=== PATIENT | female | born 1945 | race Caucasian/White ===

== ENCOUNTER 2017-02-04 17:08 | Emergency (ER) | payer MEDICARE ==
[2017-02-04] MEDS ORDERED: KETOROLAC TROMETHAMINE 60 MG/2 ML VIAL IM ONE ×2 (18:14→18:16)
--- OUTSIDE RECORDS SUMMARY | 2017-02-04 18:55 | XMS REPORT | Continuity of Care Document ---
:1945 Author Organization [facility] [place] [address] Care Team Providers Name Role Phone Rafi Roberson Primary Care Provider [phone] Source Comments This disclosure is being made pursuant to the [employer] program and maynot contain all information available regarding this patient.[facility] Active Allergies and Adverse Reactions Allergen Noted Date Severity Reactions Comments Morphine 07/12/2016 High Altered Mental Status Penicillins 01/31/2017 High Hives Current Medications Be aware that medications may not be up to date as of this document. Alwaysverify current medications with the patient. Prescription Sig. Disp. Refills Start Date End Date Status levothyroxine (SYNTHROID, Take by mouth. 10/21/2015 Active LEVOTHROID) 88 MCG tablet fexofenadine (CAMILLE Take by mouth. 01/19/2016 Active ALLERGY) 60 MG tablet Acetaminophen (TYLENOL) Take by mouth. Active 325 MG CAPS amoxicillin-clavulanate 01/13/2017 Active (AUGMENTIN) 500-125 MG per tablet amoxicillin-clavulanate 11/08/2016 Active (AUGMENTIN) 875-125 MG per tablet azithromycin (ZITHROMAX) 11/01/2016 Active 250 MG tablet CIPRO HC otic suspension 11/14/2016 Active predniSONE (DELTASONE) 20 11/08/2016 Active MG tablet diclofenac (VOLTAREN) 1 % Apply to right arm 1 Tube 0 01/31/2017 Active GEL twice daily as needed Active Problems No known active problems Most Recent Encounters Date Type Specialty Providers Description 01/31/2017 Clinical Support Radiology Jeremiah Jordan MD Elbow pain, right Shanti Jolley RT 01/31/2017 Office Visit Orthopedic Surgery Jeremiah Jordan MD Elbow pain, right (Primary Dx) 01/12/2017 Data Import 11/07/2016 Clinical Support Radiology Jeremiah Jordan MD Pain of right upper Azul Samantha N, extremity RT 11/07/2016 Clinical Support Radiology Jeremiah Jordan MD Elbow pain, right Rona Rosario, RTR 11/07/2016 Office Visit Orthopedic Surgery Jeremiah Jordan MD Elbow pain, right (Primary Dx); Pain of right upper extremity Immunizations Name Dates Previously Given Next Due Pneumococcal Polysaccharide-23 12/21/2010 Social History Tobacco Use Types Packs/Day Years Used Date Never Smoker Last Filed Vital Signs Vital Sign Reading Time Taken Blood Pressure 140/90 01/31/2017 10:39 AM CDT Pulse 88 06/24/2011 9:40 AM CDT Temperature 36.1 C (97 F) 11/23/2010 10:52 AM [employer]ISER Respiratory Rate - - Height 1.575 m (5' 2") 01/31/2017 10:39 AM CDT Weight 115.849 kg (255 lb 6.4 oz) 01/31/2017 10:39 AM CDT Body Mass Index 46.7 01/31/2017 10:39 AM CDT Oxygen Saturation - - Plan of Care Health Maintenance Due Date Last Done Comments Hepatitis C Screening 1963 Tetanus/Pertussis (1 - Tdap) 1964 Colonoscopy 1995 Mammogram 1995 Well Adult Visit 1995 Zoster Vaccine 60+ 2005 Bone Density 2010 Pneumococcal Low/Medium Risk 65+ (2 of 2 - PCV13) 12/22/2011 12/21/2010 Influenza Immunization (#1) 2016 Results from Last 3 Months XR HUMERUS MIN 2 VIEWS (01/31/2017 10:13 AM)Only the most recent of2 resultswithin the time period is included. Narrative XR HUMERUS MIN 2 VIEWS [id number] RT Clinical History: PT STATES THAT SHE HAD A FX AND SURGERY 20 YEARS AGO, SHE SAYS HARDWARE BROKE ABOUT 5 MONTHS AGO AND HAS BEEN HAVING PAIN SINCE Comparison: 11/07/2016. Findings: 2 radiographs of the right humerus were obtained with frontal and lateral projections.There is osteopenia.There is no definite evidence of acute fracture or dislocation. Postsurgical changes of right elbow arthroplasty are partially visualized.There is no definite evidence of a hardware abnormality or acute fracture.The previously visualized lucency noted involving the proximal aspect of the prosthesis is not definitely seen on the current study.Extensive old healed fracture deformities involving the right elbow are again noted. The visualized soft tissues are stable. Impression: 1.Stable postsurgical changes involving the right elbow with old healed fracture deformities.Definite evidence of acute osseous abnormality. THIS IS AN ELECTRONICALLY SIGNED REPORT BY READING PHYSICIAN: Venkat Joyce D.O.2017-01-31 16:36:11 Procedure Note Rl, External Ris In - Tue Jan 31, 2017 4:37 PM CDT XR HUMERUS MIN 2 VIEWS [id number] RT Clinical History: PT STATES THAT SHE HAD A FX AND SURGERY 20 YEARS AGO, SHE SAYS HARDWARE BROKE ABOUT 5 MONTHS AGO AND HAS BEEN HAVING PAIN SINCE Comparison: 11/07/2016. Findings: 2 radiographs of the right humerus were obtained with frontal and lateral projections. There is osteopenia. There is no definite evidence of acute fracture or dislocation. Postsurgical changes of right elbow arthroplasty are partially visualized. There is no definite evidence of a hardware abnormality or acute fracture. The previously visualized lucency noted involving the proximal aspect of the prosthesis is not definitely seen on the current study. Extensive old healed fracture deformities involving the right elbow are again noted. The visualized soft tissues are stable. Impression: 1. Stable postsurgical changes involving the right elbow with old healed fracture deformities. Definite evidence of acute osseous abnormality. THIS IS AN ELECTRONICALLY SIGNED REPORT BY READING PHYSICIAN: Venkat Joyce D.O. 2017-01-31 16:36:11 XR ELBOW 2 VIEWS (01/31/2017 10:08 AM)Only the most recent of2 resultswithin the time period is included. Narrative XR ELBOW 2 VIEWS [id number] RT Clinical History: PT STATES THAT SHE HAD A FX AND SURGERY 20 YEARS AGO, SHE SAYS HARDWARE BROKE ABOUT 5 MONTHS AGO AND HAS BEEN HAVING PAIN SINCE Comparison: 11/07/2016. Findings: 2 radiographs of the right elbow were obtained with frontal and lateral projections.There is redemonstration of postsurgical changes of right elbow arthroplasty with grossly stable alignment.Old healed fracture deformities involving the right elbow are again noted.The visualized soft tissues are stable. Impression: 1.Redemonstration of postsurgical changes of right elbow arthroplasty involving the previously visualized extensive fractures with grossly stable alignment.No definite evidence of acute fracture or hardware abnormality. THIS IS AN ELECTRONICALLY SIGNED REPORT BY READING PHYSICIAN: Venkat Joyce D.O.2017-01-31 16:34:37 Procedure Note Rl, External Ris In - Tue Jan 31, 2017 4:35 PM CDT XR ELBOW 2 VIEWS [id number] RT Clinical History: PT STATES THAT SHE HAD A FX AND SURGERY 20 YEARS AGO, SHE SAYS HARDWARE BROKE ABOUT 5 MONTHS AGO AND HAS BEEN HAVING PAIN SINCE Comparison: 11/07/2016. Findings: 2 radiographs of the right elbow were obtained with frontal and lateral projections. There is redemonstration of postsurgical changes of right elbow arthroplasty with grossly stable alignment. Old healed fracture deformities involving the right elbow are again noted. The visualized soft tissues are stable. Impression: 1. Redemonstration of postsurgical changes of right elbow arthroplasty involving the previously visualized extensive fractures with grossly stable alignment. No definite evidence of acute fracture or hardware abnormality. THIS IS AN ELECTRONICALLY SIGNED REPORT BY READING PHYSICIAN: Venkat Joyce D.O. 2017-01-31 16:34:37
--- OUTSIDE RECORDS SUMMARY | 2017-02-04 18:55 | XMS REPORT | Continuity of Care Document ---
:1945 Author Organization [facility] ([facility]) Address [address] [place] [address] Phone [phone] Care Team Providers Name Role Phone Artie Dominique Primary Care Provider [phone] Source Comments This disclosure is being made pursuant to the Care Everywhere program, applicable federal and state laws, and may not contain all informaitonavailable regarding this patient.[facility] ([facility]) Active Allergies and Adverse Reactions Allergen Noted Date Severity Reactions Comments Penicillins Urticaria (Hives) Current Medications Not on file Active Problems Problem Noted Date Pain in joint, upper arm 07/22/2004 Social History Tobacco Use Types Packs/Day Years Used Date Never Assessed Last Filed Vital Signs Vital Sign Reading Time Taken Blood Pressure 152/74 07/21/2004 9:40 AM CDT Pulse 62 07/21/2004 9:40 AM CDT Temperature 35.1 C (95.18 F) 07/21/2004 9:40 AM CDT Respiratory Rate - - Height 1.6 m (5' 2.99") 07/21/2004 9:40 AM CDT Weight 109.997 kg (242 lb 8 oz) 07/21/2004 9:40 AM CDT Body Mass Index 42.97 07/21/2004 9:40 AM CDT Oxygen Saturation - - Plan of Care Health Maintenance Due Date Last Done Comments HCV Screening 1945 Hepatitis B Vaccine (1 of 3 - Primary Series) 1945 Tdap Vaccine 1956 Lipid Disorder Screening 1963 Td Vaccine 1963 Mammogram 1985 Colonoscopy 1995 Zoster Vaccine 2005 Osteoporosis Screening (DXA Bone Density) 2010 Pneumococcal Vaccine (1 of 2 - PCV13) 2010 Influenza Vaccine: Seasonal (#1) 05/16/2016 Results from Last 3 Months Not on file
[2017-02-04] MEDS ORDERED: oxyCODONE HCL/ACETAMINOPHEN 1 TAB TABLET PO ONE (19:18)
[2017-02-04] MEDS ORDERED: oxyCODONE HCL/ACETAMINOPHEN 1 TAB TABLET ONE (19:19)
--- NOTE | 2017-02-04 19:51 | ERNOTE ---
Upper Extremity HPI - Narrative Date of Service: 02/04/17 - General Extremities Pain Location: arm: right - R side Time Seen by Provider: 02/04/17 18:38 Source: patient, family Exam Limitations: no limitations - Immun/Allergies/Home Medications Immunizations: IMMUNIZATION HX Immunizations Up to Date Yes History of Influenza Vaccine Yes Hx Pneumococcal Vaccination Yes Allergies/Adverse Reactions: Allergies Allergy/AdvReac Type Severity Reaction Status Date / Time morphine Allergy Verified 02/04/17 18:09 Home Medications: HOME MEDICATIONS Levothyroxine Sodium [Synthroid] 75 mcg PO DAILY 02/04/17 [Last Taken Unknown] oxyCODONE HCL/ACETAMINOPHEN [Percocet 5 MG/325 MG] 1 tab PO Q8H #20 tablet 02/04 [Last Taken Unknown] - History of Present Illness Narrative: Patient comes due to pain on her R arm area. Patient reported that she was carrying a baby and the arm gave away. Patient reported that she has a chronic condition that has been managed at [place] and was discharge and send to a sub- specialist that she will see next Monday. Patient reported that her bones has disappeared on the area. Patient with pain and limited ROM. Occurred: just prior to arrival Location of Incident: home Severity: moderate Method of Injury: Reports: other - carryed a baby Reason for Fall: Reports: other - Patinet had some surgical complications Modifying Factors - (Improves): Reports: other - nothing Modifying Factors - (Worsens): Reports: movement Associated Symptoms: Reports: weakness Other Injuries: Reports: none Prior Treament: Reports: recently seen - Patient was discharged from [facility] due to her chronic condition on the R forearm area Review of Systems - Review of Systems Constitutional: Absent: fever, chills, diaphoresis, weakness EYE: Present: no symptoms reported ENT: Present: no symptoms reported Respiratory: Present: no symptoms reported Cardiology: Present: no symptoms reported Gastrointestinal/Abdominal: Present: no symptoms reported Genitourinary: Present: no symptoms reported Musculoskeletal: Present: muscle pain, joint pain. Absent: joint swelling Skin: Present: no symptoms reported Neurological: Present: no symptoms reported Endocrine: Present: no symptoms reported Hematologic/Lymphatic: Present: no symptoms reported Psych: Present: no symptoms reported All Other Systems: All systems neg except as marked - Patient's Past Medical History Patient History - Medical: Hypothyroidism, Obesity Patient History - Cardiac/Respiratory: No pertinent hx Patient History - Cancer: No Hx of Cancer Patient History - Surgical Procedures: Cholecystectomy, Hysterectomy Patient History - Other: None - Social History Living Situations: home Psych History: No pertinent hx Smoking Status: Never smoker Patient requests Smoking Cessation Consult: No Initiate information on Smoking Cessation: No Alcohol Use: none Drug Use: none - Immunizations Immunizations Up to Date: Yes Hx Pneumococcal Vaccination: Yes History of Influenza Vaccine: Yes Physical Exam - Physical Exam General Appearance: Present: wd/wn, alert, no apparent distress Eye Exam: Normal inspection: bilateral Ears, Nose, Throat: Present: normal ENT inspection Neck: Present: normal inspection, nontender Respiratory: Present: no respiratory distress, normal breath sounds, no accessory muscle use, chest nontender, lungs clear Cardiovascular/Chest: Present: regular rate, rhythm, no murmur, normal peripheral pulses Gastrointestinal/Abdominal: Present: normal bowel sounds, nontender, nondistended, soft Back Exam: Present: normal inspection Extremity Exam: Present: no edema, decreased range of motion - on R elbow area, pelvis stable, bony tenderness - Over the R forearm area. Absent: calf tenderness, joint redness, joint swelling, extremity edema Neurological Exam: Present: alert, oriented, normal mood/affect, no motor/ sensory deficits Skin Exam: Present: normal color, warm/dry Lymphatic Exam: Present: no adenopathy ED Progress - Date and Time Seen: Date and Time: 02/04/17 19:45 Patient with severe loss of bone density on the R forearm and Fx. Patient with a metal prosthesis that is on place. Patient with no sign of infection. Patient at the moment has been given pain management and will need to follow up with specialist. Patient with no open wounds, good pulse and good sensation. 02/04/17 19:51 Patinet was placed Sling and Swat by RN. No complications - Vital Signs Patient's Vital Signs:: I have reviewed the patient's vital signs. Vital Signs: Vital Signs 02/04/17 18:04 Temperature 36.5 C Pulse Rate 73 Respiratory 18 Rate Blood Pressure 121/76 O2 Sat by Pulse 97 Oximetry - X-Ray X-Ray #1 X-Ray: shoulder Interpretation: Interp. by me X-ray Comments: R No Fx X-Ray #2 X-Ray: humerus Interpretation: Interp. by me X-ray Comments: No Fx X-Ray #3 X-Ray: forearm Interpretation: Interp. by me X-ray Comments: R - Fx seen and severe osteopenia - Progress/Reassessment Chief Complaint: Upper Extremity Injury/Problem - Transfer of Care Expected Disposition: Discharge Plan - Plan Plan: Follow up with specialist as scheduled. Pain management given Departure Clinical Impression: Forearm fracture Qualifiers: Encounter type: initial encounter Fracture type: closed Laterality: right Qualified Code(s): S52.91XA - Unspecified fracture of right forearm, initial encounter for closed fracture Osteopenia Qualifiers: Osteopenia location: forearm Laterality: right Qualified Code(s): M85.831 - Other specified disorders of bone density and structure, right forearm - Departure Disposition: Home self-care Condition: Stable Instructions: Forearm Fracture, [id number] Additional Instructions: Please follow up with you specialist as scheduled on Monday Prescriptions: oxyCODONE HCL/ACETAMINOPHEN [Percocet 5 MG/325 MG] 1 tab PO Q8H #20 tablet
[2017-02-04 21:57] VITALS: BP 130/88
== END 2017-02-04 20:04 | disposition home or self-care (01) ==
LOC: ER 17:08
DX: S52.91XA Unspecified fracture of right forearm, initial encounter for closed fracture (principal); M85.831 Other specified disorders of bone density and structure, right forearm; X58.XXXA Exposure to other specified factors, initial encounter; Y93.F2 Activity, caregiving, lifting; Y92.009 Unspecified place in unspecified non-institutional (private) residence as the place of occurrence of the external cause; E03.9 Hypothyroidism, unspecified